=== PATIENT | male | born 1990 | race Caucasian/White ===

== ENCOUNTER 2017-05-03 13:06 | Emergency (ER) | payer OTHER ==
[~2017-05-03] VITALS: Ht 165.1 cm; Wt 80.5 kg
[~2017-05-03 13:06] MED LIST: AUG875 PO; CLOT30CR24 TOP; ERYTOPOI LEFT EYE
[2017-05-03 13:10] VITALS: Ht 165.1 cm; Wt 80.5 kg
[2017-05-03] MEDS ORDERED: HYDROCODONE/APAP (5/325) TAB PO ONE (14:00)
--- NOTE | 2017-05-03 14:39 | RADRPT ---
PROCEDURE: XR Right Ankle. CLINICAL INDICATION: Trauma due to a fall. Right ankle pain. TECHNIQUE: 3 views. Frontal, lateral, and oblique. COMPARISON: None. FINDINGS: There is no fracture or dislocation. There is lateral soft tissue swelling. Articular surfaces are intact. There is no lytic or blastic lesion. There is no radiopaque foreign body. IMPRESSION: 1. Lateral soft tissue swelling. 2. Otherwise normal images of the right ankle. RPTAT: QQ .Regulo Perez MD, Date Time Electronically viewed and signed by .Regulo Perez MD, on 05/03/2017 14:38 .R/
--- NOTE | 2017-05-03 14:55 | ERD ---
ER Documentation Chief Complaint Date/Time DATE: 05/03/17 TIME: 14:54 Chief Complaint PT with R foot pain since ysterday after GLF. HPI This a 27-year-old male who presents the emergency department today complaining of right ankle pain. 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 Denies any previous trauma, fevers or chills. States is taking Tylenol for pain. States he is able to ambulate with a limp. ROS All systems reviewed and are negative except as per history of present illness. Medications Home Meds Active Scripts Acetaminophen* (Tylophen*) 500 Mg Capsule, 1 CAP PO Q6H Y for PAIN AND OR ELEVATED TEMP, #30 CAP Prov:ENA WAGNER PA-C 05/03/17 Naproxen* (Naprosyn*) 500 Mg Tablet, 500 MG PO BID Y for PAIN AND/OR INFLAMMATION, #30 TAB Prov:ENA WAGNER PA-C 05/03/17 Erythromycin* (Erythromycin* Ophthalmic) 1 Applic Oint, 1 APPLIC LEFT EYE QID for 7 Days, EA Prov:VANDANA ABSSETT PA-C 09/24/16 Clotrimazole* (Clotrimazole* AF) 1% - 30 Gm Cream.gm., 1 APPLIC TOP BID for 7 Days, TUB Prov:EFFIE APPIAH PA-C 05/07/16 Amoxicillin-Clavulanate K* (Augmentin*) 875 Mg Tab, 875 MG PO BID for 7 Days, TAB Prov:MAINOR LOPEZ MD 04/29/15 Allergies Allergies: Coded Allergies: No Known Allergy (Unverified , 09/24/16) PMhx/Soc Medical and Surgical Hx: pt denies Medical Hx, pt denies Surgical Hx Hx Alcohol Use: Yes Hx Substance Use: Yes (marijuana) Hx Tobacco Use: Yes Smoking Status: Current every day smoker Physical Exam Vitals Vital Signs Date Time Temp Pulse Resp B/P Pulse Ox O2 Delivery O2 Flow Rate FiO2 05/03/17 13:10 97.5 93 18 140/76 99 Physical Exam Const: No acute distress Head: Atraumatic Eyes: Normal Conjunctiva ENT: Normal External Ears, Nose and Mouth. Neck: Full range of motion..~ No meningismus. Resp: Clear to auscultation bilaterally Cardio: Regular rate and rhythm, no murmurs Skin: No petechiae or rashes MSK: Right ankle with no obvious deformity. Moderate effusion over medial and lateral malleolus. Decreased range of motion secondary to pain. Nontender navicular. Nontender fifth metatarsal. Pulses 2+. Distal neurovascularly intact. Neur: Awake and alert Psych: Normal Mood and Affect Results 24 hrs Current Medications Medications (Trade) Dose Ordered Sig/Dain Route PRN Reason Start Time Stop Time Status Last Admin Dose Admin Acetaminophen/ Hydrocodone Bitart (Hermon (5/325)) 1 tab ONCE ONCE PO 05/03/17 14:00 05/03/17 14:01 DC 05/03/17 14:57 DIAGNOSTIC IMAGING REPORT Patient: MEGHAN HENDRICKSON : 1990 Age: 27 Sex: M MR #: [id number] DOS: 05/03/17 0000 Ordering MD: ENA WAGNER PA-C Location: [facility] Room/Bed: PROCEDURE: XR Right Ankle. CLINICAL INDICATION: Trauma due to a fall. Right ankle pain. TECHNIQUE: 3 views. Frontal, lateral, and oblique. COMPARISON: None. FINDINGS: There is no fracture or dislocation. There is lateral soft tissue swelling. Articular surfaces are intact. There is no lytic or blastic lesion. There is no radiopaque foreign body. IMPRESSION: 1. Lateral soft tissue swelling. 2. Otherwise normal images of the right ankle. RPTAT: QQ .Mainor Perez MD, MD Date Time Electronically viewed and signed by .Mainor Perez MD, on 05/03/2017 14:38 .R/ CC: ENA WAGNER PA-C Procedures/MDM This is a 27-year-old male who presents the emergency department today complaining of right ankle pain after twisting it and falling yesterday. Given the patient's trauma and swelling over the medial and lateral malleolus I did obtain images Images of the right ankle show no fracture or dislocation. There is lateral soft tissue swelling. Articular surfaces are intact. Otherwise normal images of the ankle Symptoms at this time is consistent with sprain versus strain versus contusion. Patient was given an Miky wrap and crutches to help ambulate. He was given Hermon here in the emergency department. Patient will begin a prescription for Naprosyn and Tylenol for home. At this time the patient is stable for discharge and outpatient management. Patient should follow up with their PCP in the next 1-2 days. They may return to the emergency department sooner for any persistent or worsening of symptoms. Patient understood and agreed with the plan. Departure Diagnosis: Primary Impression: Ankle injury Encounter type: initial encounter Laterality: right Qualified Code: S99.911A - Ankle injury, right, initial encounter Condition: Fair ENA WAGNER PA-C May 03, 2017 14:55
[2017-05-03] MEDS ORDERED: NAPR-260 PO (15:04)
[2017-05-03] MEDS ORDERED: ACET500C5 PO (15:04)
== END 2017-05-03 15:25 | disposition home or self-care (01) ==
LOC: FTE 13:06
DX: S99.911A Unspecified injury of right ankle, initial encounter (principal); F17.210 Nicotine dependence, cigarettes, uncomplicated; W10.9XXA Fall (on) (from) unspecified stairs and steps, initial encounter; Y92.9 Unspecified place or not applicable
CPT/HCPCS: 73610; Z7502; Z7610

== ENCOUNTER 2019-06-27 13:03 | Emergency (ER) | payer OTHER ==
[~2019-06-27] VITALS: Ht 170.2 cm; Wt 89.8 kg
[~2019-06-27 13:03] MED LIST changes: +ACET500C5 PO; +ERYT1OIN6 RIGHT EYE; +NAPR-985 PO
[2019-06-27 13:10] VITALS: BP 139/88; PULSE 77; RESP 18; Ht 170.2 cm; Wt 89.8 kg
== END 2019-06-27 14:19 | disposition home or self-care (01) ==
LOC: E/R 13:03
DX: H00.011 Hordeolum externum right upper eyelid (principal); Z87.891 Personal history of nicotine dependence
CPT/HCPCS: 99283